=== PATIENT | male | born 1990 | race African-American/Black ===

== ENCOUNTER 2025-01-23 10:31 | Emergency (ER) | payer MEDICARE, OTHER ==
[~2025-01-23] VITALS: Ht 182.9 cm; Wt 64.0 kg
[2025-01-23 10:34] VITALS: O2SAT 98
[2025-01-23] MEDS: ONDANSETRON 4MG ODT PO STA (11:14)
[2025-01-23] MEDS: HYDROMORPHONE HCL/PF 2MG/ML INJ IV ONE ×2 (11:15→13:08)
[2025-01-23] MEDS: SODIUM CHLORIDE 0.9% 1,000 ML IV ONE (11:15)
[2025-01-23 11:23] VITALS: TEMP 36.9; O2SAT 98
[2025-01-23 11:27] LABS: BASOPHILS % 1.3 % (0.0-2.0); EOSINOPHILS % 2.3 % (0.0-5.0); HEMATOCRIT. 26.2 % (42.0-52.0); HEMOGLOBIN. 9.4 g/dL (14.0-18.0); LYMPHOCYTES % 28.9 % (20.0-50.0); MEAN CORPUSCULAR HEMOGLOBIN 30.1 pg (28.0-32.0); MEAN CORPUSCULAR HGB CONC 35.9 g/dL (31.0-37.0); MEAN CORPUSCULAR VOLUME 83.9 fL (80.0-94.0); MEAN PLATELET VOLUME 8.3 fl (7.4-10.4); NEUTROPHILS % 56.5 % (40.0-76.0); PLATELET 282 x1000/uL (130-400); RED BLOOD CELL COUNT 3.12 mill/uL (4.7-6.1); RED CELL DISTRIBUTION WIDTH 23.3 % (11.6-14.6)
[2025-01-23 11:28] LABS: ADD RBC MORPHOLOGY YES; DIFFERENTIAL COMMENT 1
[2025-01-23 11:42] LABS: CHLORIDE 106 mEq/L (98-107); POTASSIUM 3.8 mEq/L (3.5-5.1); SODIUM 138 mEq/L (136-145)
[2025-01-23 11:44] LABS: CALCIUM 8.8 mg/dL (8.7-10.4); CARBON DIOXIDE 28 mEq/L (21-32)
[2025-01-23 11:48] LABS: CREATININE 0.6 mg/dL (0.6-1.3)
[2025-01-23 11:49] LABS: GLUCOSE 110 mg/dL (70-105); UREA NITROGEN BLOOD 6 mg/dL (9-23)
[2025-01-23 11:50] LABS: TROPONIN I HIGH SENSITIVITY 4 ng/L (3.0-53)
[2025-01-23 12:00] LABS: PLATELET ESTIMATE NORMAL
[2025-01-23 12:02] LABS: ANISOCYTOSIS 3+; HYPOCHROMASIA 1+; SICKLE CELLS 3+
[2025-01-23 12:06] LABS: TARGET CELLS 1+
[2025-01-23 12:15] LABS: SICKLE CELL SCREEN POSITIVE (NEGATIVE)
[2025-01-23 12:18] LABS: ERYTHROCYTE SEDIMENTATION RATE 9 mm/hr (0-15)
[2025-01-23 13:08] VITALS: BP 138/86; PULSE 76; RESP 14
[2025-01-23] MEDS ORDERED: CEFTRIAXONE 1GM/50ML 50 ML IV SCH (14:00)
[2025-01-23] MEDS ORDERED: PANTOPRAZOLE SODIUM 40 MG/VIAL IV SCH (14:00)
[2025-01-23] MEDS ORDERED: MORPHINE SULFATE 2 MG/ML INJ (NOT FOR IM USE) IV PRN (14:15)
[2025-01-23] MEDS ORDERED: ONDANSETRON HCL 4MG/2ML INJ IV PRN (14:15)
[2025-01-23] MEDS ORDERED: IPRATROPIUM/ALBUTEROL 0.5-3(2.5)MG/3ML NEB NEB PRN (14:15)
[2025-01-23] MEDS ORDERED: ACETAMINOPHEN 325MG TABLET PO PRN (14:15)
[2025-01-23] MEDS ORDERED: HYDROCODONE/ACETAMINOPHEN 5/325MG TABLET PO PRN (14:15)
[2025-01-23] MEDS ORDERED: SODIUM CHLORIDE 0.9% 1,000 ML IV SCH (14:15)
[2025-01-23] MEDS ORDERED: CLONIDINE 0.1MG TABLET PO PRN (14:15)
[2025-01-23] MEDS ORDERED: NALOXONE HCL 0.4MG/ML VIAL IV PRN (14:15)
[2025-01-23] MEDS ORDERED: ENOXAPARIN 40MG/0.4ML SYR SUBCUT SCH (14:30)
[2025-01-23] MEDS ORDERED: ZOLPIDEM TARTRATE 5MG TABLET PO PRN (21:00)
== END 2025-01-23 14:15 | disposition left against medical advice (07) ==
LOC: ER 10:31
DX: D57.00 Hb-SS disease with crisis, unspecified (principal); I49.9 Cardiac arrhythmia, unspecified
CPT/HCPCS: 99285; 96374; 71045; 96361; 80048; 85660; 83880; 85025; 85044; 85651; 84484; 84145; 93005; 96376; 36415; J1171; Q0162; J7030